=== PATIENT | female | born 1985 | race African-American/Black ===

== ENCOUNTER 2021-04-30 09:49 | Outpatient (REF) | payer MEDICAID, SELFPAY ==
[2021-04-30 10:47] LABS: MANUAL DIFF FLAG NO
[2021-04-30 11:01] LABS: Basophils Percent Auto 0.2 % (0-2); Eosinophils Absolute Auto 0.1 X10*3/uL (0.0-0.4); Eosinophils Percent Auto 1.9 % (0-4); Hematocrit 37.8 % (37-47); Hemoglobin 12.7 g/dl (12.0-16.0); Imm Gran Abs Auto 0.01 X10*3/uL (0.00-0.03); Imm Gran Pct Auto 0.2 % (0.0-0.4); Lymphocytes Absolute Auto 1.3 X10*3/uL (1.2-4.9); Mean Corpuscular HGB Conc 33.6 g/dl (31.0-35.0); Mean Corpuscular Hemoglobin 28.8 pg (27.0-33.0); Mean Corpuscular Volume 85.7 fL (80-98); Mean Platelet Volume 13.1 fL (9.4-12.3); Monocytes Absolute Auto 0.5 X10*3/uL (0.1-1.2); Monocytes Percent Auto 10.4 % (2-11); Neutrophils Absolute Auto 2.8 X10*3/uL (2.0-8.3); Neutrophils Percent Auto 60.3 % (45-73); Platelet Count 160 X10*3/uL (160-400); Red Blood Count 4.41 X10*6/uL (4.20-5.50); Red Cell Distribution Width 13.2 % (11.0-16.0); White Blood Count 4.7 X10*3/uL (4.8-10.8)
[2021-04-30 11:27] LABS: Alanine Aminotransferase 10 U/L (0-31); Albumin Level 4.1 g/dL (3.5-5.0); Alkaline Phosphatase 70 U/L (39-117); Anion Gap 11 (12-20); Aspartate Amino Transferase 18 U/L (5-31); Bilirubin Total 0.6 mg/dL (0.0-1.0); Blood Urea Nitrogen 4 mg/dL (9-16); Calcium 9.4 mg/dL (8.4-10.2); Carbon Dioxide 26 mmol/L (22-29); Chloride 103 mmol/L (96-108); Estimated Glomerular Filt Rate > 60; Glucose Random 80 mg/dL (60-115); Potassium 3.8 mmol/L (3.3-5.1); Sodium 136 mmol/L (135-145); Total Protein 6.7 g/dL (6.5-8.0)
== END 2021-04-30 09:50 | disposition home or self-care (01) ==
LOC: HO.LAB 09:49
PROVIDERS: Visit Provider Internal Medicine Medical Oncology
DX: D69.6 Thrombocytopenia, unspecified (principal)
CPT/HCPCS: 36415; 80053; 85025

== ENCOUNTER 2021-07-22 08:49 | Outpatient (REF) | payer MEDICAID, SELFPAY ==
[2021-07-22 15:12] LABS: CT PCR NOT DETECTED (Not Detect.); NG PCR NOT DETECTED (Not Detect.)
[2021-07-23 14:46] LABS: BV Int Neg Control Negative (Negative); BV Int Pos Control Positive (Positive)
[2021-07-27 05:51] LABS: HPV mRNA E6/E7 rflx Not Detected (Not Detected)
== END 2021-07-22 08:50 | disposition home or self-care (01) ==
LOC: HO.LAB 08:49
PROVIDERS: PCP Physician Assistant; Visit Provider Advanced Practice Midwife
DX: Z01.419 Encounter for gynecological examination (general) (routine) without abnormal findings (principal); Z11.3 Encounter for screening for infections with a predominantly sexual mode of transmission; Z11.51 Encounter for screening for human papillomavirus (HPV); N63.0 Unspecified lump in unspecified breast; N89.8 Other specified noninflammatory disorders of vagina; Z78.9 Other specified health status
CPT/HCPCS: 87480; 87491; 87510; 87591; 87624; 87660; 88142

== ENCOUNTER → 2021-07-26 09:17 | Outpatient (BNVA) | payer MEDICAID, SELFPAY | PROVIDERS: PCP Physician Assistant; Visit Provider Advanced Practice Midwife ==

== ENCOUNTER 2021-07-29 11:10 | Outpatient (REF) | payer MEDICAID, SELFPAY ==
--- NOTE | ~2021-07-29 | MM_ITS ---
EXAMINATION: MM DIAGNOSTIC DIGITAL BREAST TOMOSYNTHESIS, BILATERAL US BREAST TARGETED, BILATERAL CLINICAL INFORMATION: Bilateral breast lumps. COMPARISON: Mammography: None. TECHNIQUE: Digital breast tomosynthesis is performed in both the craniocaudal and mediolateral oblique views along with computer-aided detection (CAD). Synthesized 2D images are generated from the tomosynthesis. Targeted bilateral breast ultrasound. FINDINGS: The breasts are extremely dense, which lowers the sensitivity of mammography (ACR BI-RADS breast composition Category d). About the deep lateral aspect of the right breast approximately 9 cm from the nipple, there is a circumscribed 1.3 x 0.8 cm density present. There are a few scattered calcifications seen within both breasts. About the inferior medial aspect of the left breast, there is a circumscribed approximately 1.4 x 1.0 cm density. Targeted right breast ultrasound demonstrated at approximately the 9 o'clock position, 7 cm from the nipple, shows a hypoechoic well-circumscribed mass without internal vascularity. It is wider than it is tall. No distal sound shadowing is identified. No significant distal sound enhancement is seen. It measures approximately 0.9 x 0.4 x 0.9 cm in size. Targeted left breast ultrasound demonstrated at approximately the 3-4 o'clock position shows a hypoechoic smoothly circumscribed lesion but with macrolobulations measuring approximately 1.1 x 0.8 x 1.1 cm in size. The lesion is wider than it is tall with some increased through sound transmission. No internal vascularity is present. This has the appearance of a fibroadenoma. Recommend ultrasound-guided biopsy of the left breast lesion, and depending on result, would consider a 6-month followup right breast ultrasound to ensure stability of the right breast lesion. Results are discussed with the patient at time of visit. MM/MM tomosynthesis diagnostic BI IMPRESSION: Bilateral breast densities for which ultrasound-guided core biopsy of the left lesion is recommended, as described above. ASSESSMENT: BI-RADS 4: Suspicious. RECOMMENDATION: Left breast ultrasound-guided core biopsy.
--- NOTE | ~2021-07-29 | US_ITS ---
EXAMINATION: US DIAGNOSTIC ULTRASOUND BREAST, LEFT CLINICAL INFORMATION: Bilateral breast densities. COMPARISON: Mammography of same day. TECHNIQUE: Ultrasound of the breast is performed with real-time brothers scale imaging and color Doppler. FINDINGS: Targeted right breast ultrasound demonstrated at approximately the 9:00 position 7 cm from the nipple a hypoechoic well-circumscribed mass without internal vascularity. It is wider than it is tall. No distal sound shadowing is identified. No significant distal sound enhancement is seen. The mass measures approximately 0.9 x 0.4 x 0.9 cm in size. Targeted left breast ultrasound demonstrated at approximately the 3-4 clock position a hypoechoic smoothly circumscribed but with macro lobulations measuring approximately 1.1 x 0.8 x 1.1 cm in size. The lesion is wider than it is tall with some increased through sound transmission and no internal vascularity is present. This has the appearance of a fibroadenoma. Recommend ultrasound-guided biopsy of the left breast lesion and depending on results would consider 6 month follow-up right breast ultrasound to ensure stability of the right breast lesion. Results are discussed with the patient at time of visit. US/US breast LT limited IMPRESSION: Bilateral breast densities for which ultrasound-guided core biopsy of the left lesion is recommended as described above. ASSESSMENT: BI-RADS 4: Suspicious RECOMMENDATION: Left breast ultrasound-guided core biopsy
--- NOTE | ~2021-07-29 | US_ITS ---
EXAMINATION: US DIAGNOSTIC ULTRASOUND BREAST, RIGHT CLINICAL INFORMATION: Bilateral breast lumps. COMPARISON: Mammography of same day. TECHNIQUE: Ultrasound of the breast is performed with real-time brothers scale imaging and color Doppler. FINDINGS: Targeted right breast ultrasound demonstrated at approximately the 9:00 position 7 cm from the nipple a hypoechoic well-circumscribed mass without internal vascularity. It is wider than it is tall. No distal sound shadowing is identified. No significant distal sound enhancement is seen. Mid measures approximately 0.9 x 0.4 x 0.9 cm in size. Targeted left breast ultrasound demonstrated at approximately the 3-4 clock position a hypoechoic smoothly circumscribed but with macro lobulations measuring approximately 1.1 x 0.8 x 1.1 cm in size. The lesion is wider than it is tall with some increased through sound transmission and no internal vascularity is present. This has the appearance of a fibroadenoma. Recommend ultrasound-guided biopsy of the left breast lesion and depending on results would consider 6 month follow-up right breast ultrasound to ensure stability of the right breast lesion. Results are discussed with the patient at time of visit. US/US breast RT limited IMPRESSION: Bilateral breast densities for which ultrasound-guided core biopsy of the left lesion is recommended as described above. ASSESSMENT: BI-RADS 4: Suspicious RECOMMENDATION: Left breast ultrasound-guided core biopsy
== END 2021-07-29 11:11 | disposition home or self-care (01) ==
LOC: HO.MAMMO 11:10
PROVIDERS: PCP Physician Assistant; Visit Provider Advanced Practice Midwife
DX: N63.23 Unspecified lump in the left breast, lower outer quadrant (principal); N63.13 Unspecified lump in the right breast, lower outer quadrant
CPT/HCPCS: 76642; 77062; 77066

== ENCOUNTER 2021-09-01 14:37 | Outpatient (REF) | payer MEDICAID, SELFPAY ==
[2021-09-02 11:37] LABS: BV Int Neg Control Negative (Negative); BV Int Pos Control Positive (Positive)
== END 2021-09-01 14:38 | disposition home or self-care (01) ==
LOC: HO.LAB 14:37
PROVIDERS: PCP Physician Assistant; Visit Provider Advanced Practice Midwife
DX: Z30.09 Encounter for other general counseling and advice on contraception (principal); N89.8 Other specified noninflammatory disorders of vagina
CPT/HCPCS: 87480; 87510; 87660; 99212

== ENCOUNTER → 2022-01-04 10:10 | Outpatient (BNVA) | payer MEDICAID, SELFPAY | PROVIDERS: PCP Physician Assistant; Visit Provider Advanced Practice Midwife | DX: Z30.09 Encounter for other general counseling and advice on contraception (principal) | CPT/HCPCS: 99212 ==

== ENCOUNTER → 2022-01-05 14:38 | Outpatient (BNVA) | payer MEDICAID, SELFPAY | PROVIDERS: PCP Physician Assistant; Visit Provider Surgery | DX: R92.8 Other abnormal and inconclusive findings on diagnostic imaging of breast (principal) | CPT/HCPCS: 99202 ==

== ENCOUNTER 2022-01-27 14:34 | Outpatient (REF) | payer MEDICAID, SELFPAY | END 2022-01-27 14:35 | disposition home or self-care (01) | LOC: HO.MAMMO 14:34 | PROVIDERS: PCP Physician Assistant; Visit Provider Advanced Practice Midwife | DX: Z13.89 Encounter for screening for other disorder (principal) ==

== ENCOUNTER 2022-02-01 13:21 | Outpatient (REF) | payer MEDICAID, SELFPAY ==
--- NOTE | ~2022-02-01 | US_ITS ---
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 Patient declined previous biopsy recommendation. Age 36. No known family history breast cancer. TC score 12%. COMPARISON: Mammography and bilateral breast ultrasound 07/29/2021. TECHNIQUE: Ultrasound of each breast is targeted to the areas of prior probable benign nodularity. Grayscale imaging and color Doppler are performed without and with harmonics. FINDINGS: Right: There is a stable smooth benign-appearing solid nodule 9:00 position 7 cm from nipple is similar to prior exam. Measurements are approximately 1.2 x 0.5 x 0.8 cm. Prior measurements are similar at 1.1 x 0.5 x 0.9 cm (remeasured in same orientation). No focal suspicious finding. No architectural abnormality or duct ectasia. Left: There is a stable smooth benign-appearing solid nodule 9:00 position 3 cm from nipple is similar to prior exam. Measurements are approximately 1.2 x 0.8 x 1.1 cm. Prior measurements are similar 1.1 x 0.8 x 1.1 cm. No focal suspicious finding. No architectural abnormality or duct ectasia. Results are discussed with the patient at time of visit. Findings will be reassessed again in 6 months to provide a 1 year follow-up surveillance. 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 ASSESSMENT: BI-RADS 3: Probably Benign RECOMMENDATION: Bilateral targeted breast ultrasound, due in 6 months. This patient's information was entered into a reminder system with a target due date for their next ultrasound.
--- NOTE | ~2022-02-01 | US_ITS ---
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 Patient declined previous biopsy recommendation. Age 36. No known family history breast cancer. TC score 12%. COMPARISON: Mammography and bilateral breast ultrasound 07/29/2021. TECHNIQUE: Ultrasound of each breast is targeted to the areas of prior probable benign nodularity. Grayscale imaging and color Doppler are performed without and with harmonics. FINDINGS: Right: There is a stable smooth benign-appearing solid nodule 9:00 position 7 cm from nipple is similar to prior exam. Measurements are approximately 1.2 x 0.5 x 0.8 cm. Prior measurements are similar at 1.1 x 0.5 x 0.9 cm (remeasured in same orientation). No focal suspicious finding. No architectural abnormality or duct ectasia. Left: There is a stable smooth benign-appearing solid nodule 9:00 position 3 cm from nipple is similar to prior exam. Measurements are approximately 1.2 x 0.8 x 1.1 cm. Prior measurements are similar 1.1 x 0.8 x 1.1 cm. No focal suspicious finding. No architectural abnormality or duct ectasia. Results are discussed with the patient at time of visit. Findings will be reassessed again in 6 months to provide a 1 year follow-up surveillance. 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 ASSESSMENT: BI-RADS 3: Probably Benign RECOMMENDATION: Bilateral targeted breast ultrasound, due in 6 months. This patient's information was entered into a reminder system with a target due date for their next ultrasound.
== END 2022-02-01 13:22 | disposition home or self-care (01) ==
LOC: HO.MAMMO 13:21
PROVIDERS: PCP Physician Assistant; Visit Provider Advanced Practice Midwife
DX: D24.1 Benign neoplasm of right breast (principal); D24.2 Benign neoplasm of left breast
CPT/HCPCS: 76642